=== PATIENT | female | born 1955 | race African-American/Black ===

== ENCOUNTER 2016-12-29 00:23 | Inpatient (IN) | payer OTHER ==
[2016-12-29] VITALS (7 sets, daily range): BP systolic 96–156; BP diastolic 63–97
[~2016-12-29] VITALS: Ht 160 cm; Wt 59.0 kg
[~2016-12-29 00:23] MED LIST: ATEN25 PO; FAMO20 PO; HYDR25TA PO; IBUP-2070 PO; MULT-1039 PO; NYST5L PO; OXYB5 PO; QUET200T PO; RIVA10 PO; SIMV-260 PO
[2016-12-29] MEDS ORDERED: TRAZ-144 PO (00:31)
[2016-12-29] MEDS ORDERED: D-ME118S13 PO (00:31)
[2016-12-29] MEDS ORDERED: NALOXONE HCL 1 MG/ML 2 ML SYG ONE (00:39)
[2016-12-29] MEDS ORDERED: NALOXONE HCL 1 MG/ML 2 ML SYG IVP ONE (00:45)
[2016-12-29] MEDS ORDERED: FLUMAZENIL 0.1 MG/ML 5 ML VIAL IVP ONE (01:00)
[2016-12-29 01:09] LABS: BASOPHILS # (AUTO) 0.02 K/uL (0.00-0.20); BASOPHILS % (AUTO) 0.4 % (0.0-2.0); EOSINOPHILS # (AUTO) 0.11 K/uL (0.00-0.70); EOSINOPHILS % (AUTO) 1.59 % (1.0-6.0); HEMATOCRIT 35.5 % (36-46); HEMOGLOBIN 11.6 g/dL (12.0-16.0); LYMPHOCYTES # (AUTO) 2.9 K/uL (1.0-4.8); LYMPHOCYTES % (AUTO) 43.5 % (22.0-44.0); MEAN CORPUSCULAR HEMOGLOBIN 28.2 pg (26.0-34.0); MEAN CORPUSCULAR HGB CONC 32.7 G/dL (31.0-37.0); MEAN CORPUSCULAR VOLUME 86 fL (80-100); MONOCYTES # (AUTO) 0.4 K/uL (0.1-1.0); NEUTROPHILS # (AUTO) 3.3 K/uL (1.8-7.7); NEUTROPHILS % (AUTO) 48.6 % (40.0-70.0); PLATELET COUNT (AUTO) 222 K/uL (150-450); PROTHROMBIN TIME 10.2 SEC (9.4-11.6); RED BLOOD CELL COUNT(AUTO) 4.12 MIL/uL (4.00-5.20); RED CELL DISTRIBUTION WIDTH 15.5 % (11.5-14.5); WHITE BLOOD COUNT (AUTO) 6.7 K/uL (4.5-11.0)
[2016-12-29] MEDS ORDERED: DIPH25 PO (01:13)
[2016-12-29] MEDS ORDERED: GABA-529 PO (01:13)
[2016-12-29 01:14] LABS: AMMONIA 21 umol/L (11-32)
[2016-12-29 01:15] LABS: TROPONIN I < 0.02 ng/mL (0.00-0.05)
[2016-12-29 01:16] LABS: APPEARANCE,URINE CLEAR (CLEAR); GLUCOSE, URINE (UA) NEGATIVE (NEGATIVE); KETONES,URINE NEGATIVE (NEGATIVE); LEUKOCYTE ESTERASE ,URINE NEGATIVE (NEGATIVE); OCCULT BLOOD,URINE NEGATIVE (NEGATIVE); PH,URINE 6.5 (5.0-8.0); PROTEIN,URINE NEGATIVE (NEGATIVE)
[2016-12-29 01:28] LABS: SALICYLATE < 2.8 mg/dL (2.8-20.0)
[2016-12-29 01:38] LABS: B-TYPE NATRIURETIC PEPTIDE 14 pg/mL (0-100)
[2016-12-29 01:45] LABS: ALANINE AMINOTRANSFERASE 31 U/L (12-78); ALBUMIN 2.9 g/dL (3.4-5.0); ANION GAP 11 mmol/L (8-16); ASPARTATE AMINOTRANSFERASE 30 U/L (15-37); BILIRUBIN,TOTAL 0.3 mg/dL (0.1-1.0); CALCIUM, TOTAL 7.8 mg/dL (8.8-10.5); CARBON DIOXIDE 24 mmol/L (22-29); CHLORIDE 106 mmol/L (98-107); CREATINE KINASE MB 2.9 ng/mL (0-5); CREATINE KINASE, TOTAL 304 U/L (26-192); CREATININE 0.76 mg/dL (0.60-1.30); GLOMERULAR FILTR. RATE CALC > 60 mL/min (>60); SODIUM SERUM 141 mmol/L (136-145); TOTAL PROTEIN, SERUM 6.3 g/dL (6.4-8.2); UREA NITROGEN, BLOOD 19 mg/dL (7-18)
[2016-12-29 01:46] LABS: ACETAMINOPHEN < 2 mcg/mL (10-30); POTASSIUM 2.9 mmol/L (3.5-5.1)
[2016-12-29 01:57] LABS: LACTIC ACID 3.1 mmol/L (0.4-2.0)
[2016-12-29] MEDS ORDERED: POTASSIUM CHL 10 MEQ/WATER 50 ML IV ONE ×2 (02:00→04:30)
[2016-12-29 02:13] LABS: RBC,URINE 0-2 /HPF (0-2); WBC,URINE 0-2 /HPF (0-5)
[2016-12-29 02:48] LABS: REFLEX LACTIC ACID? YES YES
[2016-12-29 03:49] LABS: ABG A-A DIFF O2 40.2 mmHg (10-20.0); ABG HCO3 18.8 mmol/L (22.0-26.0); ABG OXYHEMOGLOBIN 91.6 % (94.0-100.0); ABG PCO2 31 mmHg (35-45); TEMPERATURE, FAHRENHEIT, BG 95.7 FAHREN (96.0-98.6)
[2016-12-29 03:50] LABS: ALLEN TEST, BLOOD GAS Positive
[2016-12-29] MEDS ORDERED: ONDANSETRON HCL 4 MG/2 ML VIAL IVP PRN ×2 (04:00→05:15)
[2016-12-29] MEDS ORDERED: 0.9% SODIUM CHLORIDE 10 ML SYRINGE IVP PRN ×2 (04:00→15:45)
[2016-12-29] MEDS ORDERED: POTASSIUM CHL 20 MEQ/D5-0.45NS 1,000 ML IV ONE (04:30)
[2016-12-29] MEDS ORDERED: ACETAMINOPHEN 325 MG TABLET PO PRN (05:15)
[2016-12-29] MEDS ORDERED: BISACODYL 10 MG RECTAL RECTAL SUPPOSITORY PR PRN (05:15)
[2016-12-29] MEDS ORDERED: POTASSIUM CHL 10 MEQ/WATER 50 ML IV PRN (05:15)
[2016-12-29] MEDS ORDERED: MAGNESIUM OXIDE 400 MG TABLET PO PRN (05:15)
[2016-12-29] MEDS ORDERED: MAGNESIUM SULFATE 4 GM/WATER 100 ML IV PRN (05:15)
[2016-12-29] MEDS ORDERED: IPRATROPIUM BROMIDE 0.5 MG/2.5 ML NEB SOLUTION NEB PRN (05:15)
[2016-12-29] MEDS ORDERED: MAGNESIUM HYDROXIDE SUSPENSION 30 ML UDCUP PO PRN (05:15)
[2016-12-29] MEDS ORDERED: HYDROCODONE/ACETAMINOPHEN 5-325 MG TABLET PO PRN (05:15)
[2016-12-29] MEDS ORDERED: ALBUTEROL SULFATE 2.5 MG/0.5 ML NEB SOLUTION NEB PRN (05:15)
[2016-12-29] MEDS ORDERED: POTASSIUM CHLORIDE 20 MEQ ER TABLET PO PRN (05:15)
[2016-12-29] MEDS ORDERED: MAGNESIUM SULFATE 2 GM in DEXTROSE 5%-WATER 50 ML IV PRN (05:15)
[2016-12-29] MEDS: OXYBUTYNIN CHLORIDE 5 MG TABLET PO SCH ×2 (09:00→21:00)
[2016-12-29] MEDS: PANTOPRAZOLE SODIUM 40 MG/VIAL IVP SCH (09:00)
[2016-12-29] MEDS: MULTIVITAMINS WITH MINERALS, THERAPEUTIC TABLET PO SCH (09:00)
[2016-12-29] MEDS: ATENOLOL 25 MG TABLET PO SCH (09:00)
[2016-12-29] MEDS: HYDROCHLOROTHIAZIDE 25 MG TABLET PO SCH (09:00)
[2016-12-29 11:52] LABS: ABG A-A DIFF O2 34.9 mmHg (10-20.0); ABG BASE EXCESS -2.8 mmol/L (-2.0-3.0); ABG HCO3 22.3 mmol/L (22.0-26.0); ABG OXYHEMOGLOBIN 96.7 % (94.0-100.0); ABG PCO2 41 mmHg (35-45); ABG PH 7.357 (7.35-7.450)
[2016-12-29 11:53] LABS: ALLEN TEST, BLOOD GAS Positive
[2016-12-29] MEDS ORDERED: SODIUM CHLORIDE 0.9% 250 ML IV ONE (12:58)
[2016-12-29] MEDS: RIVAROXABAN 10 MG TABLET PO SCH (17:30)
[2016-12-29 17:57] LABS: GLUCOSE,POINT OF CARE 74 MG/DL (70-110)
[2016-12-29] MEDS ORDERED: DEXTROSE 50%-WATER 25 GM/50 ML SYRINGE IVP PRN (18:00)
[2016-12-29] MEDS: SIMVASTATIN 20 MG TABLET PO SCH (21:00)
[2016-12-29] MEDS: DEXTROSE 5%-0.45% SODIUM CHL 1,000 ML IV SCH (21:05)
[2016-12-29] MEDS: VANCOMYCIN HCL 1 GM/D5% WATER 200 ML IV SCH (21:06)
[2016-12-30] VITALS (7 sets, daily range): BP systolic 139–160; BP diastolic 76–88
[2016-12-30 05:12] LABS: BASOPHILS # (AUTO) 0.02 K/uL (0.00-0.20); BASOPHILS % (AUTO) 0.2 % (0.0-2.0); EOSINOPHILS # (AUTO) 0.05 K/uL (0.00-0.70); EOSINOPHILS % (AUTO) 0.43 % (1.0-6.0); HEMATOCRIT 38.6 % (36-46); HEMOGLOBIN 12.5 g/dL (12.0-16.0); LYMPHOCYTES # (AUTO) 2.2 K/uL (1.0-4.8); LYMPHOCYTES % (AUTO) 20.7 % (22.0-44.0); MEAN CORPUSCULAR HEMOGLOBIN 27.7 pg (26.0-34.0); MEAN CORPUSCULAR HGB CONC 32.4 G/dL (31.0-37.0); MEAN CORPUSCULAR VOLUME 86 fL (80-100); MONOCYTES # (AUTO) 0.4 K/uL (0.1-1.0); MONOCYTES % (AUTO) 3.3 % (2.0-9.0); NEUTROPHILS # (AUTO) 8.1 K/uL (1.8-7.7); NEUTROPHILS % (AUTO) 75.3 % (40.0-70.0); PLATELET COUNT (AUTO) 233 K/uL (150-450); RED CELL DISTRIBUTION WIDTH 15.2 % (11.5-14.5); WHITE BLOOD COUNT (AUTO) 10.7 K/uL (4.5-11.0)
[2016-12-30 05:30] LABS: ALANINE AMINOTRANSFERASE 27 U/L (12-78); ALBUMIN 2.9 g/dL (3.4-5.0); ANION GAP 7 mmol/L (8-16); ASPARTATE AMINOTRANSFERASE 19 U/L (15-37); BILIRUBIN,TOTAL 0.4 mg/dL (0.1-1.0); CALCIUM, TOTAL 8.1 mg/dL (8.8-10.5); CARBON DIOXIDE 27 mmol/L (22-29); CHLORIDE 107 mmol/L (98-107); CREATININE 0.81 mg/dL (0.60-1.30); GLOMERULAR FILTR. RATE CALC > 60 mL/min (>60); POTASSIUM 3.6 mmol/L (3.5-5.1); SODIUM SERUM 141 mmol/L (136-145); TOTAL PROTEIN, SERUM 6.6 g/dL (6.4-8.2); UREA NITROGEN, BLOOD 9 mg/dL (7-18)
[2016-12-30 05:34] LABS: LACTIC ACID 1.2 mmol/L (0.4-2.0)
[2016-12-30] MEDS: DEXTROSE 5%-0.45% SODIUM CHL 1,000 ML IV SCH ×2 (06:38→14:32)
[2016-12-30] MEDS: VANCOMYCIN HCL 1 GM/D5% WATER 200 ML IV SCH ×2 (08:22→21:01)
[2016-12-30] MEDS: HYDROCHLOROTHIAZIDE 25 MG TABLET PO SCH (08:22)
[2016-12-30] MEDS: PANTOPRAZOLE SODIUM 40 MG/VIAL IVP SCH (08:22)
[2016-12-30] MEDS: ATENOLOL 25 MG TABLET PO SCH (08:22)
[2016-12-30] MEDS: OXYBUTYNIN CHLORIDE 5 MG TABLET PO SCH ×2 (08:22→21:01)
[2016-12-30] MEDS: MULTIVITAMINS WITH MINERALS, THERAPEUTIC TABLET PO SCH (08:22)
[2016-12-30 09:32] LABS: GLUCOSE,POINT OF CARE 119 MG/DL (70-110)
[2016-12-30 09:32] LABS: GLUCOSE,POINT OF CARE 93 MG/DL (70-110)
[2016-12-30 09:37] LABS: GLUCOSE,POINT OF CARE 107 MG/DL (70-110)
[2016-12-30] MEDS: INSULIN ASPART 100 UNITS/ML SQ PRN ×2 (12:24→21:08)
[2016-12-30 14:13] LABS: GLUCOSE,POINT OF CARE 157 MG/DL (70-110)
[2016-12-30] MEDS: NICOTINE 21 MG/24 HOUR PATCH TD SCH (16:22)
[2016-12-30] MEDS: RIVAROXABAN 10 MG TABLET PO SCH (17:02)
[2016-12-30 20:43] LABS: GLUCOSE,POINT OF CARE 135 MG/DL (70-110)
[2016-12-30] MEDS: SIMVASTATIN 20 MG TABLET PO SCH (21:01)
[2016-12-30] MEDS ORDERED: LORazepam 1 MG TABLET PO PRN (23:15)
[2016-12-30] MEDS ORDERED: ChlorproMAZINE HCL 50 MG TABLET PO PRN (23:15)
[2016-12-31] MEDS: DEXTROSE 5%-0.45% SODIUM CHL 1,000 ML IV SCH ×3 (00:24→20:43)
[2016-12-31 06:00] VITALS: BP 145/78
[2016-12-31 07:15] LABS: ANION GAP 7 mmol/L (8-16); CARBON DIOXIDE 27 mmol/L (22-29); CHLORIDE 103 mmol/L (98-107); CREATININE 0.92 mg/dL (0.60-1.30); GLOMERULAR FILTR. RATE CALC > 60 mL/min (>60); POTASSIUM 3.4 mmol/L (3.5-5.1); SODIUM SERUM 137 mmol/L (136-145); UREA NITROGEN, BLOOD 12 mg/dL (7-18)
[2016-12-31 07:47] VITALS: BP 158/98
[2016-12-31] MEDS: VANCOMYCIN HCL 1 GM/D5% WATER 200 ML IV SCH (08:11)
[2016-12-31] MEDS: NICOTINE 21 MG/24 HOUR PATCH TD SCH (08:12)
[2016-12-31] MEDS: HYDROCHLOROTHIAZIDE 25 MG TABLET PO SCH (08:12)
[2016-12-31] MEDS: OXYBUTYNIN CHLORIDE 5 MG TABLET PO SCH ×2 (08:12→20:44)
[2016-12-31] MEDS: MULTIVITAMINS WITH MINERALS, THERAPEUTIC TABLET PO SCH (08:12)
[2016-12-31] MEDS: ATENOLOL 25 MG TABLET PO SCH (08:12)
[2016-12-31] MEDS: RisperiDONE 0.5 MG TABLET PO SCH ×2 (08:12→20:44)
[2016-12-31] MEDS: POTASSIUM CHLORIDE 20 MEQ ER TABLET PO PRN (08:25)
[2016-12-31] MEDS: PANTOPRAZOLE SODIUM 40 MG/VIAL IVP SCH (08:29)
[2016-12-31 11:36] VITALS: BP 138/63
[2016-12-31] MEDS ORDERED: VANCOMYCIN HCL 750 MG in DEXTROSE 5%-WATER 150 ML IV SCH (14:00)
[2016-12-31 15:34] VITALS: BP 129/81
[2016-12-31] MEDS: RIVAROXABAN 10 MG TABLET PO SCH (17:29)
[2016-12-31 19:38] VITALS: BP 131/77
[2016-12-31 20:22] LABS: GLUCOSE,POINT OF CARE 108 MG/DL (70-110)
[2016-12-31 20:22] LABS: GLUCOSE COMMENT 1 Received Meds; GLUCOSE,POINT OF CARE 144 MG/DL (70-110)
[2016-12-31 20:22] LABS: GLUCOSE,POINT OF CARE 125 MG/DL (70-110)
[2016-12-31] MEDS: SIMVASTATIN 20 MG TABLET PO SCH (20:44)
[2016-12-31] MEDS: TraZODone HCL 50 MG TABLET PO SCH (20:45)
[2016-12-31 20:52] LABS: GLUCOSE,POINT OF CARE 115 MG/DL (70-110)
[2016-12-31 23:55] VITALS: BP 141/73
[2017-01-01 04:48] VITALS: BP 111/74
[2017-01-01 05:12] LABS: GLUCOSE,POINT OF CARE 116 MG/DL (70-110)
[2017-01-01 07:11] LABS: ANION GAP 7 mmol/L (8-16); CALCIUM, TOTAL 9.6 mg/dL (8.8-10.5); CARBON DIOXIDE 28 mmol/L (22-29); CHLORIDE 101 mmol/L (98-107); CREATININE 0.88 mg/dL (0.60-1.30); GLOMERULAR FILTR. RATE CALC > 60 mL/min (>60); POTASSIUM 3.8 mmol/L (3.5-5.1); SODIUM SERUM 136 mmol/L (136-145); UREA NITROGEN, BLOOD 18 mg/dL (7-18)
[2017-01-01 07:50] VITALS: BP 132/89
[2017-01-01] MEDS: DEXTROSE 5%-0.45% SODIUM CHL 1,000 ML IV SCH ×2 (09:01→15:35)
[2017-01-01] MEDS: PANTOPRAZOLE SODIUM 40 MG/VIAL IVP SCH (09:05)
[2017-01-01] MEDS: ATENOLOL 25 MG TABLET PO SCH (09:06)
[2017-01-01] MEDS: HYDROCHLOROTHIAZIDE 25 MG TABLET PO SCH (09:06)
[2017-01-01] MEDS: NICOTINE 21 MG/24 HOUR PATCH TD SCH (09:07)
[2017-01-01] MEDS: RisperiDONE 0.5 MG TABLET PO SCH ×2 (09:07→20:59)
[2017-01-01] MEDS: OXYBUTYNIN CHLORIDE 5 MG TABLET PO SCH ×2 (09:07→20:59)
[2017-01-01 11:25] VITALS: BP 122/78
[2017-01-01 12:27] LABS: GLUCOSE,POINT OF CARE 121 MG/DL (70-110)
[2017-01-01] MEDS: MULTIVITAMINS WITH MINERALS, THERAPEUTIC TABLET PO SCH (15:34)
[2017-01-01 15:44] VITALS: BP 132/75
[2017-01-01] MEDS: RIVAROXABAN 10 MG TABLET PO SCH (17:35)
[2017-01-01 19:26] VITALS: BP 144/84
[2017-01-01] MEDS: TraZODone HCL 50 MG TABLET PO SCH (20:59)
[2017-01-01] MEDS: SIMVASTATIN 20 MG TABLET PO SCH (20:59)
[2017-01-01 21:42] LABS: GLUCOSE COMMENT 1 Juice/Food/D50 Given; GLUCOSE,POINT OF CARE 87 MG/DL (70-110)
[2017-01-01 23:12] VITALS: BP 142/91
[2017-01-02] VITALS (7 sets, daily range): BP systolic 97–152; BP diastolic 53–92
[2017-01-02 06:41] LABS: ANION GAP 6 mmol/L (8-16); CALCIUM, TOTAL 9.4 mg/dL (8.8-10.5); CARBON DIOXIDE 29 mmol/L (22-29); CHLORIDE 100 mmol/L (98-107); CREATININE 0.78 mg/dL (0.60-1.30); GLOMERULAR FILTR. RATE CALC > 60 mL/min (>60); POTASSIUM 3.6 mmol/L (3.5-5.1); SODIUM SERUM 135 mmol/L (136-145); UREA NITROGEN, BLOOD 18 mg/dL (7-18)
[2017-01-02 06:41] LABS: GLUCOSE,POINT OF CARE 103 MG/DL (70-110)
[2017-01-02] MEDS: PANTOPRAZOLE SODIUM 40 MG/VIAL IVP SCH (09:07)
[2017-01-02] MEDS: ATENOLOL 25 MG TABLET PO SCH (09:08)
[2017-01-02] MEDS: MULTIVITAMINS WITH MINERALS, THERAPEUTIC TABLET PO SCH (09:09)
[2017-01-02] MEDS: HYDROCHLOROTHIAZIDE 25 MG TABLET PO SCH (09:09)
[2017-01-02] MEDS: OXYBUTYNIN CHLORIDE 5 MG TABLET PO SCH ×2 (09:09→19:49)
[2017-01-02] MEDS: NICOTINE 21 MG/24 HOUR PATCH TD SCH (09:10)
[2017-01-02] MEDS: RisperiDONE 0.5 MG TABLET PO SCH ×2 (09:10→19:49)
[2017-01-02 18:07] LABS: GLUCOSE,POINT OF CARE 103 MG/DL (70-110)
[2017-01-02] MEDS: TraZODone HCL 50 MG TABLET PO SCH (19:49)
[2017-01-02] MEDS: SIMVASTATIN 20 MG TABLET PO SCH (19:49)
[2017-01-02 20:21] LABS: GLUCOSE,POINT OF CARE 102 MG/DL (70-110)
[2017-01-02] MEDS: RIVAROXABAN 10 MG TABLET PO SCH (20:23)
[2017-01-02 22:47] LABS: GLUCOSE,POINT OF CARE 116 MG/DL (70-110)
[2017-01-03 04:48] VITALS: BP 119/53
[2017-01-03 06:36] LABS: BASOPHILS % (AUTO) 0.4 % (0.0-2.0); EOSINOPHILS % (AUTO) 3.6 % (1.0-6.0); HEMATOCRIT 42.5 % (36-46); HEMOGLOBIN 13.4 g/dL (12.0-16.0); LYMPHOCYTES # (AUTO) 2.8 K/uL (1.0-4.8); LYMPHOCYTES % (AUTO) 36.5 % (22.0-44.0); MEAN CORPUSCULAR HGB CONC 31.4 G/dL (31.0-37.0); MEAN CORPUSCULAR VOLUME 86 fL (80-100); MONOCYTES # (AUTO) 0.7 K/uL (0.1-1.0); MONOCYTES % (AUTO) 9.6 % (2.0-9.0); NEUTROPHILS # (AUTO) 3.9 K/uL (1.8-7.7); NEUTROPHILS % (AUTO) 49.9 % (40.0-70.0); PLATELET COUNT (AUTO) 285 K/uL (150-450); RED BLOOD CELL COUNT(AUTO) 4.95 MIL/uL (4.00-5.20); RED CELL DISTRIBUTION WIDTH 14.8 % (11.5-14.5); WHITE BLOOD COUNT (AUTO) 7.8 K/uL (4.5-11.0)
[2017-01-03 06:37] LABS: GLUCOSE,POINT OF CARE 110 MG/DL (70-110)
[2017-01-03 06:52] LABS: GLUCOSE,POINT OF CARE 121 MG/DL (70-110)
[2017-01-03 07:14] LABS: ANION GAP 8 mmol/L (8-16); CARBON DIOXIDE 29 mmol/L (22-29); CHLORIDE 98 mmol/L (98-107); POTASSIUM 3.6 mmol/L (3.5-5.1); SODIUM SERUM 135 mmol/L (136-145)
[2017-01-03 07:15] LABS: CALCIUM, TOTAL 9.4 mg/dL (8.8-10.5); CREATININE 0.94 mg/dL (0.60-1.30); GLOMERULAR FILTR. RATE CALC > 60 mL/min (>60); UREA NITROGEN, BLOOD 20 mg/dL (7-18)
[2017-01-03 07:28] VITALS: BP 111/75
[2017-01-03] MEDS: PANTOPRAZOLE SODIUM 40 MG/VIAL IVP SCH ×2 (08:42→09:00)
[2017-01-03] MEDS: OXYBUTYNIN CHLORIDE 5 MG TABLET PO SCH ×2 (08:42→20:41)
[2017-01-03] MEDS: HYDROCHLOROTHIAZIDE 25 MG TABLET PO SCH (08:43)
[2017-01-03] MEDS: ATENOLOL 25 MG TABLET PO SCH ×2 (08:43→11:22)
[2017-01-03] MEDS: RisperiDONE 0.5 MG TABLET PO SCH ×2 (08:43→20:41)
[2017-01-03] MEDS: MULTIVITAMINS WITH MINERALS, THERAPEUTIC TABLET PO SCH (08:43)
[2017-01-03] MEDS: NICOTINE 21 MG/24 HOUR PATCH TD SCH (08:44)
[2017-01-03 11:16] VITALS: BP 150/77
[2017-01-03 12:02] LABS: GLUCOSE,POINT OF CARE 117 MG/DL (70-110)
[2017-01-03 15:20] VITALS: BP 107/59
[2017-01-03 17:33] LABS: GLUCOSE,POINT OF CARE 94 MG/DL (70-110)
[2017-01-03 17:37] LABS: GLUCOSE,POINT OF CARE 93 MG/DL (70-110)
[2017-01-03] MEDS: RIVAROXABAN 10 MG TABLET PO SCH (18:07)
[2017-01-03 20:00] VITALS: BP 116/64
[2017-01-03] MEDS: TraZODone HCL 50 MG TABLET PO SCH (20:41)
[2017-01-03] MEDS: SIMVASTATIN 20 MG TABLET PO SCH (20:41)
[2017-01-03 23:35] VITALS: BP 120/77
[2017-01-04 04:27] VITALS: BP 101/76
[2017-01-04 06:30] LABS: BASOPHILS % (AUTO) 0.4 % (0.0-2.0); EOSINOPHILS % (AUTO) 2.6 % (1.0-6.0); HEMATOCRIT 43.2 % (36-46); HEMOGLOBIN 13.4 g/dL (12.0-16.0); LYMPHOCYTES # (AUTO) 2.5 K/uL (1.0-4.8); LYMPHOCYTES % (AUTO) 33.9 % (22.0-44.0); MEAN CORPUSCULAR HEMOGLOBIN 26.8 pg (26.0-34.0); MEAN CORPUSCULAR VOLUME 86 fL (80-100); MONOCYTES # (AUTO) 0.8 K/uL (0.1-1.0); MONOCYTES % (AUTO) 11.2 % (2.0-9.0); NEUTROPHILS # (AUTO) 3.8 K/uL (1.8-7.7); NEUTROPHILS % (AUTO) 51.9 % (40.0-70.0); PLATELET COUNT (AUTO) 300 K/uL (150-450); RED CELL DISTRIBUTION WIDTH 14.9 % (11.5-14.5); WHITE BLOOD COUNT (AUTO) 7.4 K/uL (4.5-11.0)
[2017-01-04 06:36] LABS: GLUCOSE,POINT OF CARE 120 MG/DL (70-110)
[2017-01-04 06:43] LABS: ANION GAP 8 mmol/L (8-16); CALCIUM, TOTAL 9.4 mg/dL (8.8-10.5); CARBON DIOXIDE 29 mmol/L (22-29); CHLORIDE 100 mmol/L (98-107); CREATININE 0.88 mg/dL (0.60-1.30); GLOMERULAR FILTR. RATE CALC > 60 mL/min (>60); POTASSIUM 3.4 mmol/L (3.5-5.1); SODIUM SERUM 137 mmol/L (136-145); UREA NITROGEN, BLOOD 24 mg/dL (7-18)
[2017-01-04 06:48] LABS: GLUCOSE,POINT OF CARE 113 MG/DL (70-110)
[2017-01-04] MEDS: POTASSIUM CHLORIDE 20 MEQ ER TABLET PO PRN (07:44)
[2017-01-04] MEDS: NICOTINE 21 MG/24 HOUR PATCH TD SCH (08:01)
[2017-01-04] MEDS: OXYBUTYNIN CHLORIDE 5 MG TABLET PO SCH (08:01)
[2017-01-04] MEDS: RisperiDONE 0.5 MG TABLET PO SCH (08:01)
[2017-01-04] MEDS: ATENOLOL 25 MG TABLET PO SCH (08:01)
[2017-01-04] MEDS: MULTIVITAMINS WITH MINERALS, THERAPEUTIC TABLET PO SCH (08:01)
[2017-01-04] MEDS: HYDROCHLOROTHIAZIDE 25 MG TABLET PO SCH (08:01)
[2017-01-04] MEDS: PANTOPRAZOLE SODIUM 40 MG/VIAL IVP SCH (08:02)
[2017-01-04 08:40] VITALS: BP 122/56
[2017-01-04 11:30] VITALS: BP 114/67
[2017-01-04 12:07] LABS: GLUCOSE,POINT OF CARE 98 MG/DL (70-110)
== END 2017-01-04 14:57 | disposition home or self-care (01) | DRG 812 ==
LOC: EMS 00:24 → ICU 05:29 → 5N 12-30 07:25 → 5S 01-01 05:40 → 6N 01-02 14:23
PROVIDERS: ADMIT Internal Medicine; ATTEND Internal Medicine
DX: T43.592A Poisoning by other antipsychotics and neuroleptics, intentional self-harm, initial encounter (principal); G92 Toxic encephalopathy; E44.0 Moderate protein-calorie malnutrition; I48.0 Paroxysmal atrial fibrillation; E83.51 Hypocalcemia; I10 Essential (primary) hypertension; J44.9 Chronic obstructive pulmonary disease, unspecified; E87.6 Hypokalemia; F41.8 Other specified anxiety disorders; F10.229 Alcohol dependence with intoxication, unspecified; Z86.73 Personal history of transient ischemic attack (TIA), and cerebral infarction without residual deficits; R32 Unspecified urinary incontinence; T42.6X2A Poisoning by other antiepileptic and sedative-hypnotic drugs, intentional self-harm, initial encounter; T43.212A Poisoning by selective serotonin and norepinephrine reuptake inhibitors, intentional self-harm, initial encounter; E11.9 Type 2 diabetes mellitus without complications; E78.5 Hyperlipidemia, unspecified; E78.00 Pure hypercholesterolemia, unspecified; F17.210 Nicotine dependence, cigarettes, uncomplicated; G47.00 Insomnia, unspecified; F25.0 Schizoaffective disorder, bipolar type; Z79.51 Long term (current) use of inhaled steroids; Z79.01 Long term (current) use of anticoagulants; Z91.14 Patient's other noncompliance with medication regimen; Z91.5 Personal history of self-harm; Z79.899 Other long term (current) drug therapy; Y92.89 Other specified places as the place of occurrence of the external cause; Y93.89 Activity, other specified; Y99.8 Other external cause status
CPT/HCPCS: 51702; 70450; 82805; 82962; 83605; 83735; 84132; 87040; 87081; 93005; 96361; 96365; 96366; 96374; 96375; 99291; C9113; G0480; G0481; J2310; J3370; J3480; J3490; J7050; J7060

== ENCOUNTER 2017-07-25 00:23 | Emergency (ER) | payer OTHER ==
[~2017-07-25] VITALS: Ht 160 cm; Wt 54.5 kg
[~2017-07-25 00:23] MED LIST changes: -ATEN25 PO; +ATEN25TA PO; -IBUP-2070 PO; -NYST5L PO; -OXYB5 PO; +TRAZ-144 PO
[2017-07-25] MEDS ORDERED: GUAIF600 PO (00:46)
[2017-07-25] MEDS ORDERED: NIAC500T7 PO (00:46)
[2017-07-25] MEDS ORDERED: THIA100 PO (00:46)
[2017-07-25] MEDS ORDERED: OMEP20 PO (00:46)
[2017-07-25] MEDS ORDERED: RANI150T7 PO (00:46)
[2017-07-25] MEDS ORDERED: DICL75TA5 PO (00:46)
[2017-07-25] MEDS ORDERED: VITAD50000 PO (00:46)
[2017-07-25] MEDS ORDERED: TRAZ-144 PO (00:46)
[2017-07-25] MEDS ORDERED: OXYB5XL PO (00:46)
[2017-07-25] MEDS ORDERED: FAMO20 PO (00:46)
[2017-07-25] MEDS ORDERED: GABA-318 PO (00:46)
[2017-07-25] MEDS ORDERED: SODIUM CHLORIDE 0.9% 1,000 ML IV ONE (01:45)
[2017-07-25 01:59] LABS: INFLUENZA TYPE B NEGATIVE FOR TYPE B (NEGATIVE)
[2017-07-25 02:07] LABS: BASOPHILS # (AUTO) 0.02 K/uL (0.00-0.20); BASOPHILS % (AUTO) 0.2 % (0.0-2.0); EOSINOPHILS # (AUTO) 0.01 K/uL (0.00-0.70); EOSINOPHILS % (AUTO) 0.05 % (1.0-6.0); HEMATOCRIT 38.8 % (36-46); HEMOGLOBIN 12.4 g/dL (12.0-16.0); LYMPHOCYTES % (AUTO) 7.5 % (22.0-44.0); MEAN CORPUSCULAR HEMOGLOBIN 28.2 pg (26.0-34.0); MEAN CORPUSCULAR HGB CONC 31.9 G/dL (31.0-37.0); MEAN CORPUSCULAR VOLUME 88 fL (80-100); MONOCYTES # (AUTO) 0.3 K/uL (0.1-1.0); NEUTROPHILS # (AUTO) 11.6 K/uL (1.8-7.7); PLATELET COUNT (AUTO) 190 K/uL (150-450); RED BLOOD CELL COUNT(AUTO) 4.39 MIL/uL (4.00-5.20); RED CELL DISTRIBUTION WIDTH 14.4 % (11.5-14.5); WHITE BLOOD COUNT (AUTO) 12.9 K/uL (4.5-11.0)
[2017-07-25 02:08] LABS: NEUTROPHILS % (AUTO) 90.3 % (40.0-70.0)
[2017-07-25 02:23] LABS: RBC MORPHOLOGY COMMENT NORMAL RBC MORPH
[2017-07-25 02:24] LABS: ALANINE AMINOTRANSFERASE 20 U/L (12-78); ALBUMIN 3.3 g/dL (3.4-5.0); ANION GAP 8 mmol/L (8-16); ASPARTATE AMINOTRANSFERASE 13 U/L (15-37); BILIRUBIN,TOTAL 0.7 mg/dL (0.1-1.0); CALCIUM, TOTAL 8.7 mg/dL (8.8-10.5); CARBON DIOXIDE 25 mmol/L (22-29); CHLORIDE 105 mmol/L (98-107); CREATININE 1.04 mg/dL (0.60-1.30); GLOMERULAR FILTR. RATE CALC > 60 mL/min (>60); SODIUM SERUM 138 mmol/L (136-145); UREA NITROGEN, BLOOD 20 mg/dL (7-18)
[2017-07-25 02:26] LABS: LACTIC ACID 1.7 mmol/L (0.4-2.0)
[2017-07-25] MEDS ORDERED: POTASSIUM CHLORIDE 20 MEQ ER TABLET PO ONE (03:00)
[2017-07-25] MEDS ORDERED: AZITHROMYCIN 250 MG TABLET PO ONE (03:15)
[2017-07-25] MEDS ORDERED: OSELTAMIVIR PHOSPHATE 75 MG CAPSULE PO ONE (03:15)
[2017-07-25 04:33] LABS: GLUCOSE, URINE (UA) NEGATIVE (NEGATIVE); KETONES,URINE TRACE mg/dL (NEGATIVE); LEUKOCYTE ESTERASE ,URINE MODERATE (NEGATIVE); OCCULT BLOOD,URINE NEGATIVE (NEGATIVE); PROTEIN,URINE NEGATIVE (NEGATIVE)
[2017-07-25 04:46] LABS: ADD UA MICROSCOPIC YES; APPEARANCE,URINE SLIGHTLY CLOUDY (CLEAR); RBC,URINE 0-2 /HPF (0-2); SQUAMOUS EPITHELIAL CELL,UR Many /LPF (None Seen)
[2017-07-25 05:35] VITALS: BP 104/71
== END 2017-07-25 05:58 | disposition home or self-care (01) ==
LOC: EMS 00:24
DX: J18.0 Bronchopneumonia, unspecified organism (principal); J44.9 Chronic obstructive pulmonary disease, unspecified; E78.00 Pure hypercholesterolemia, unspecified; I10 Essential (primary) hypertension; F17.210 Nicotine dependence, cigarettes, uncomplicated; Z86.73 Personal history of transient ischemic attack (TIA), and cerebral infarction without residual deficits; Z79.899 Other long term (current) drug therapy
CPT/HCPCS: 36415; 71010; 80053; 81001; 83605; 84484; 85025; 87040; 87086; 87804; 93005; 96360; 99285; J7030

== ENCOUNTER 2018-03-30 20:53 | Inpatient (IN) | payer MEDICAID, OTHER ==
[~2018-03-30] VITALS: Ht 160 cm; Wt 43.6 kg
[~2018-03-30 20:53] MED LIST changes: +DICL75TA5 PO; +GABA-318 PO; +GUAIF600 PO; -HYDR25TA PO; -MULT-1039 PO; +NIAC500T7 PO; +OMEP20 PO; +OXYB5XL PO; -QUET200T PO; +RANI150T7 PO; -RIVA10 PO; +THIA100T67 PO; -TRAZ-144 PO; +TRAZ-219 PO; +VITAD50000 PO
[2018-03-30] MEDS ORDERED: HALOPERIDOL 5 MG TABLET PO ONE (23:00)
[2018-03-30 23:15] LABS: BASOPHILS % (AUTO) 0.7 % (0.0-2.0); HEMATOCRIT 41.1 % (36-46); HEMOGLOBIN 13.5 g/dL (12.0-16.0); LYMPHOCYTES # (AUTO) 2.5 K/uL (1.0-4.8); LYMPHOCYTES % (AUTO) 45.6 % (22.0-44.0); MEAN CORPUSCULAR HGB CONC 32.8 G/dL (31.0-37.0); MEAN CORPUSCULAR VOLUME 91 fL (80-100); MONOCYTES # (AUTO) 0.3 K/uL (0.1-1.0); MONOCYTES % (AUTO) 6.2 % (2.0-9.0); NEUTROPHILS # (AUTO) 2.5 K/uL (1.8-7.7); NEUTROPHILS % (AUTO) 45.5 % (40.0-70.0); PLATELET COUNT (AUTO) 230 K/uL (150-450); RED BLOOD CELL COUNT(AUTO) 4.49 MIL/uL (4.00-5.20); RED CELL DISTRIBUTION WIDTH 15.8 % (11.5-14.5)
[2018-03-30 23:29] LABS: ALANINE AMINOTRANSFERASE 28 U/L (12-78); ALBUMIN 3.3 g/dL (3.4-5.0); ALKALINE PHOSPHATASE 57 U/L (46-116); ANION GAP 11 mmol/L (8-16); ASPARTATE AMINOTRANSFERASE 32 U/L (15-37); BILIRUBIN,TOTAL 0.4 mg/dL (0.1-1.0); CALCIUM, TOTAL 8.8 mg/dL (8.8-10.5); CARBON DIOXIDE 28 mmol/L (22-29); CHLORIDE 106 mmol/L (98-107); CREATININE 0.67 mg/dL (0.60-1.30); GLOMERULAR FILTR. RATE CALC > 60 mL/min (>60); GLUCOSE,RANDOM 131 mg/dL (70-110); POTASSIUM 3.1 mmol/L (3.5-5.1); SODIUM SERUM 145 mmol/L (136-145); TOTAL PROTEIN, SERUM 6.6 g/dL (6.4-8.2)
[2018-03-30 23:48] LABS: UREA NITROGEN, BLOOD 25 mg/dL (7-18)
[2018-03-31] VITALS (12 sets, daily range): BP systolic 145–172; BP diastolic 58–104
[2018-03-31] MEDS ORDERED: HALOPERIDOL 5 MG TABLET PO PRN (00:15)
[2018-03-31] MEDS: ZOLPIDEM TARTRATE 10 MG TABLET PO PRN (00:47)
[2018-03-31 00:52] LABS: APPEARANCE,URINE CLEAR (CLEAR); BILIRUBIN,URINE NEGATIVE (NEGATIVE); GLUCOSE, URINE (UA) NEGATIVE (NEGATIVE); KETONES,URINE NEGATIVE (NEGATIVE); LEUKOCYTE ESTERASE ,URINE NEGATIVE (NEGATIVE); NITRATE,URINE NEGATIVE (NEGATIVE); OCCULT BLOOD,URINE NEGATIVE (NEGATIVE); PROTEIN,URINE NEGATIVE (NEGATIVE)
[2018-03-31 00:58] LABS: AMPHET/METH SCREEN,URINE NEGATIVE (NEGATIVE); BARBITURATE SCREEN, URINE NEGATIVE (NEGATIVE); BENZODIAZEPINES SCREEN,URINE NEGATIVE (NEGATIVE); CANNABINOID SCREEN,URINE NEGATIVE (NEGATIVE); COCAINE SCREEN,URINE NEGATIVE (NEGATIVE); METHADONE SCREEN, URINE NEGATIVE (NEGATIVE); OPIATE SCREEN,URINE NEGATIVE (NEGATIVE); PHENCYCLIDINE SCREEN,URINE NEGATIVE (NEGATIVE)
[2018-03-31 01:10] LABS: BACTERIA,URINE None Seen /HPF (None Seen); RBC,URINE None Seen /HPF (0-2); WBC,URINE None Seen /HPF (0-5)
[2018-03-31] MEDS ORDERED: PNEUMOCOCCAL VACCINE POLYVALENT 0.5 ML VIAL [PPSV23] IM ONE (05:45)
[2018-03-31] MEDS ORDERED: NICOTINE 14 MG/24 HOUR PATCH TD PRN (06:45)
[2018-03-31] MEDS ORDERED: GuaiFENesin/D-METHORPHAN [SUGAR-FREE] 200-20MG/10 ML SYRUP UDCUP PO PRN (06:45)
[2018-03-31] MEDS ORDERED: CloNIDine HCL 0.1 MG TABLET PO PRN (06:45)
[2018-03-31] MEDS ORDERED: ONDANSETRON HCL 4 MG TABLET PO PRN (06:45)
[2018-03-31] MEDS ORDERED: ALBUTEROL SULFATE HFA 90 MCG/PUFF 8 GM INHALER IH PRN (06:45)
[2018-03-31] MEDS ORDERED: MAG HYDROX/AL HYDROX/SIMETH ES 30 ML SUSPENSION UDCUP PO PRN (06:45)
[2018-03-31] MEDS ORDERED: MAGNESIUM HYDROXIDE SUSPENSION 30 ML UDCUP PO PRN (06:45)
[2018-03-31] MEDS ORDERED: LOPERAMIDE HCL 2 MG CAPSULE PO PRN (06:45)
[2018-03-31] MEDS ORDERED: PETROLATUM,WHITE 71 GM JELLY TP PRN (06:45)
[2018-03-31] MEDS ORDERED: POTASSIUM CHLORIDE 20 MEQ ER TABLET PO ONE (06:45)
[2018-03-31] MEDS ORDERED: DOCUSATE SODIUM 100 MG CAPSULE PO PRN (06:45)
[2018-03-31] MEDS: ATENOLOL 25 MG TABLET PO SCH (08:22)
[2018-03-31] MEDS: LORazepam 2 MG TABLET PO PRN (08:40)
[2018-03-31] MEDS: IBUPROFEN 400 MG TABLET PO PRN ×2 (09:49→20:42)
[2018-03-31] MEDS ORDERED: PROMETHAZINE HCL 25 MG TABLET PO PRN (11:45)
[2018-03-31] MEDS ORDERED: HydrOXYzine PAMOATE 50 MG CAPSULE PO PRN (11:45)
[2018-03-31] MEDS ORDERED: ChlordiazePOXIDE HCL 25 MG CAPSULE PO PRN (11:45)
[2018-03-31] MEDS ORDERED: CYANOCOBALAMIN 1,000 MCG/ML VIAL IM ONE (11:45)
[2018-03-31] MEDS: MULTIVITAMINS WITH MINERALS, THERAPEUTIC TABLET PO SCH (13:29)
[2018-03-31] MEDS: FOLIC ACID 1 MG TABLET PO SCH (13:29)
[2018-03-31] MEDS: THIAMINE HCL 100 MG TABLET PO SCH (16:39)
[2018-03-31] MEDS: HydrALAZINE HCL 10 MG TABLET PO SCH (20:41)
[2018-04-01] VITALS (7 sets, daily range): BP systolic 145–154; BP diastolic 69–84
[2018-04-01] MEDS: LORazepam 2 MG TABLET PO PRN (03:40)
[2018-04-01] MEDS: IBUPROFEN 400 MG TABLET PO PRN (03:40)
[2018-04-01] MEDS ORDERED: ChlordiazePOXIDE HCL 25 MG CAPSULE PO PRN (07:00)
[2018-04-01 07:23] LABS: BASOPHILS % (AUTO) 0.5 % (0.0-2.0); EOSINOPHILS % (AUTO) 0.6 % (1.0-6.0); HEMATOCRIT 47.3 % (36-46); HEMOGLOBIN 15.7 g/dL (12.0-16.0); LYMPHOCYTES % (AUTO) 32.3 % (22.0-44.0); MEAN CORPUSCULAR HEMOGLOBIN 30.1 pg (26.0-34.0); MEAN CORPUSCULAR HGB CONC 33.1 G/dL (31.0-37.0); MEAN CORPUSCULAR VOLUME 91 fL (80-100); MONOCYTES # (AUTO) 0.5 K/uL (0.1-1.0); MONOCYTES % (AUTO) 7.7 % (2.0-9.0); NEUTROPHILS # (AUTO) 3.6 K/uL (1.8-7.7); NEUTROPHILS % (AUTO) 58.9 % (40.0-70.0); PLATELET COUNT (AUTO) 246 K/uL (150-450); RED CELL DISTRIBUTION WIDTH 15.6 % (11.5-14.5)
[2018-04-01 07:54] LABS: ALANINE AMINOTRANSFERASE 31 U/L (12-78); ALBUMIN 3.8 g/dL (3.4-5.0); ALKALINE PHOSPHATASE 54 U/L (46-116); ANION GAP 10 mmol/L (8-16); ASPARTATE AMINOTRANSFERASE 35 U/L (15-37); BILIRUBIN,TOTAL 1.1 mg/dL (0.1-1.0); CALCIUM, TOTAL 9.4 mg/dL (8.8-10.5); CARBON DIOXIDE 26 mmol/L (22-29); CHLORIDE 100 mmol/L (98-107); CHOLESTEROL 234 mg/dL (131-200); CREATININE 0.57 mg/dL (0.60-1.30); FREE T4 (FREE THYROXINE) 1.13 ng/dL (0.76-1.46); GLOMERULAR FILTR. RATE CALC > 60 mL/min (>60); GLUCOSE,RANDOM 109 mg/dL (70-110); HDL CHOLESTEROL 118 mg/dL (40-60); LDL CHOL (CALC.) 94 mg/dL (0-130); POTASSIUM 3.8 mmol/L (3.5-5.1); SODIUM SERUM 136 mmol/L (136-145); THYROID STIMULATING HORMONE 1.51 uIU/mL (0.36-3.74); TOTAL PROTEIN, SERUM 7.6 g/dL (6.4-8.2); TRIGLYCERIDES 112 mg/dL (15-150); UREA NITROGEN, BLOOD 14 mg/dL (7-18)
[2018-04-01 08:03] LABS: HEMOGLOBIN A1C 4.9 % (4.5-6.2)
[2018-04-01] MEDS: GABAPENTIN 100 MG CAPSULE PO SCH ×3 (08:29→17:30)
[2018-04-01] MEDS: FOLIC ACID 1 MG TABLET PO SCH (08:29)
[2018-04-01] MEDS: ChlordiazePOXIDE HCL 25 MG CAPSULE PO SCH ×4 (08:29→21:13)
[2018-04-01] MEDS: MULTIVITAMINS WITH MINERALS, THERAPEUTIC TABLET PO SCH (08:29)
[2018-04-01] MEDS: BuPROPion HCL XL 150 MG ER TABLET PO SCH (08:30)
[2018-04-01] MEDS: THIAMINE HCL 100 MG TABLET PO SCH ×2 (08:30→17:30)
[2018-04-01] MEDS: HydrALAZINE HCL 10 MG TABLET PO SCH ×2 (08:30→21:13)
[2018-04-01] MEDS: ATENOLOL 25 MG TABLET PO SCH (08:30)
[2018-04-01] MEDS: ACETAMINOPHEN 325 MG TABLET PO PRN (08:46)
[2018-04-02] MEDS: ZOLPIDEM TARTRATE 10 MG TABLET PO PRN (02:12)
[2018-04-02] MEDS: ChlordiazePOXIDE HCL 25 MG CAPSULE PO SCH ×4 (08:57→20:05)
[2018-04-02] MEDS: THIAMINE HCL 100 MG TABLET PO SCH ×2 (08:57→17:14)
[2018-04-02] MEDS: GABAPENTIN 100 MG CAPSULE PO SCH ×3 (08:57→17:14)
[2018-04-02] MEDS: FOLIC ACID 1 MG TABLET PO SCH (08:57)
[2018-04-02] MEDS: MULTIVITAMINS WITH MINERALS, THERAPEUTIC TABLET PO SCH (08:57)
[2018-04-02] MEDS: BuPROPion HCL XL 150 MG ER TABLET PO SCH (08:57)
[2018-04-02] MEDS: HydrALAZINE HCL 10 MG TABLET PO SCH ×2 (08:58→20:04)
[2018-04-02] MEDS: ATENOLOL 25 MG TABLET PO SCH (08:58)
[2018-04-02 09:00] VITALS: BP 107/75
[2018-04-02] MEDS: IBUPROFEN 400 MG TABLET PO PRN (09:00)
[2018-04-02 18:00] VITALS: BP 139/75
[2018-04-02 18:07] VITALS: BP 139/75
[2018-04-03 00:14] VITALS: BP 95/68
[2018-04-03] MEDS: ZOLPIDEM TARTRATE 10 MG TABLET PO PRN ×2 (00:16→22:57)
[2018-04-03] MEDS: IBUPROFEN 400 MG TABLET PO PRN (00:16)
[2018-04-03] MEDS ORDERED: ChlordiazePOXIDE HCL 10 MG CAPSULE PO PRN (07:00)
[2018-04-03 07:10] VITALS: BP 141/81
[2018-04-03] MEDS: FOLIC ACID 1 MG TABLET PO SCH (08:10)
[2018-04-03] MEDS: ChlordiazePOXIDE HCL 10 MG CAPSULE PO SCH ×4 (08:13→20:11)
[2018-04-03] MEDS: BuPROPion HCL XL 150 MG ER TABLET PO SCH (08:14)
[2018-04-03] MEDS: MULTIVITAMINS WITH MINERALS, THERAPEUTIC TABLET PO SCH (08:14)
[2018-04-03] MEDS: GABAPENTIN 100 MG CAPSULE PO SCH ×3 (08:14→16:14)
[2018-04-03] MEDS: THIAMINE HCL 100 MG TABLET PO SCH ×2 (08:14→16:14)
[2018-04-03] MEDS: ATENOLOL 25 MG TABLET PO SCH (08:14)
[2018-04-03] MEDS: HydrALAZINE HCL 10 MG TABLET PO SCH ×2 (08:14→20:10)
[2018-04-03 11:02] VITALS: BP 133/82
[2018-04-03 17:14] VITALS: BP 124/90
[2018-04-03 17:15] VITALS: BP 124/90
[2018-04-04] MEDS: LORazepam 2 MG TABLET PO PRN ×2 (01:51→22:29)
[2018-04-04] MEDS: IBUPROFEN 400 MG TABLET PO PRN ×2 (01:51→20:39)
[2018-04-04 01:55] VITALS: BP 90/65
[2018-04-04 06:55] VITALS: BP 90/65
[2018-04-04] MEDS ORDERED: ChlordiazePOXIDE HCL 10 MG CAPSULE PO PRN (07:00)
[2018-04-04 08:00] VITALS: BP 122/62
[2018-04-04] MEDS: HydrALAZINE HCL 10 MG TABLET PO SCH ×2 (08:31→20:03)
[2018-04-04] MEDS: GABAPENTIN 100 MG CAPSULE PO SCH ×3 (08:32→16:38)
[2018-04-04] MEDS: THIAMINE HCL 100 MG TABLET PO SCH ×2 (08:32→16:38)
[2018-04-04] MEDS: MULTIVITAMINS WITH MINERALS, THERAPEUTIC TABLET PO SCH (08:32)
[2018-04-04] MEDS: ATENOLOL 25 MG TABLET PO SCH (08:32)
[2018-04-04] MEDS: FOLIC ACID 1 MG TABLET PO SCH (08:32)
[2018-04-04] MEDS: BuPROPion HCL XL 150 MG ER TABLET PO SCH (08:33)
[2018-04-04] MEDS: NICOTINE 14 MG/24 HOUR PATCH TD SCH (09:00)
[2018-04-04 16:29] VITALS: BP 100/62
[2018-04-04 20:30] VITALS: BP 100/70
[2018-04-04] MEDS: ZOLPIDEM TARTRATE 10 MG TABLET PO PRN (20:54)
[2018-04-04 21:39] VITALS: BP 120/66
[2018-04-05 00:07] VITALS: BP 110/64
[2018-04-05] MEDS: ACETAMINOPHEN 325 MG TABLET PO PRN (00:09)
[2018-04-05 08:00] VITALS: BP 113/61
[2018-04-05 08:30] VITALS: BP 101/58
[2018-04-05] MEDS: HydrALAZINE HCL 10 MG TABLET PO SCH (08:38)
[2018-04-05] MEDS: FOLIC ACID 1 MG TABLET PO SCH (08:39)
[2018-04-05] MEDS: ATENOLOL 25 MG TABLET PO SCH (08:39)
[2018-04-05] MEDS: MULTIVITAMINS WITH MINERALS, THERAPEUTIC TABLET PO SCH (08:39)
[2018-04-05] MEDS: THIAMINE HCL 100 MG TABLET PO SCH (08:39)
[2018-04-05] MEDS: GABAPENTIN 100 MG CAPSULE PO SCH ×2 (08:39→13:35)
[2018-04-05] MEDS: NICOTINE 14 MG/24 HOUR PATCH TD SCH (08:40)
[2018-04-05] MEDS: BuPROPion HCL XL 150 MG ER TABLET PO SCH (08:40)
[2018-04-05] MEDS ORDERED: BUPR-93 PO (13:40)
[2018-04-05] MEDS ORDERED: FOLI1 PO (13:43)
[2018-04-05] MEDS ORDERED: HYDR10TA31 PO (13:45)
[2018-04-05] MEDS ORDERED: MULT-1239 PO (13:50)
== END 2018-04-05 15:33 | disposition home or self-care (01) | DRG 751 ==
LOC: EMS 20:54 → 3EI 03-31 00:48
PROVIDERS: ADMIT Psychiatry & Neurology Psychiatry; ATTEND Psychiatry & Neurology Psychiatry
DX: F33.2 Major depressive disorder, recurrent severe without psychotic features (principal); F14.259 Cocaine dependence with cocaine-induced psychotic disorder, unspecified; B18.2 Chronic viral hepatitis C; E55.9 Vitamin D deficiency, unspecified; E78.00 Pure hypercholesterolemia, unspecified; E78.5 Hyperlipidemia, unspecified; F15.959 Other stimulant use, unspecified with stimulant-induced psychotic disorder, unspecified; F41.9 Anxiety disorder, unspecified; F17.210 Nicotine dependence, cigarettes, uncomplicated; I10 Essential (primary) hypertension; W18.39XA Other fall on same level, initial encounter; J44.9 Chronic obstructive pulmonary disease, unspecified; K21.9 Gastro-esophageal reflux disease without esophagitis; F10.20 Alcohol dependence, uncomplicated; G62.9 Polyneuropathy, unspecified; M25.512 Pain in left shoulder; M19.012 Primary osteoarthritis, left shoulder; R32 Unspecified urinary incontinence; Z86.73 Personal history of transient ischemic attack (TIA), and cerebral infarction without residual deficits; Z91.5 Personal history of self-harm; Y93.89 Activity, other specified; Y92.89 Other specified places as the place of occurrence of the external cause; Y99.8 Other external cause status; Z79.899 Other long term (current) drug therapy; Z71.6 Tobacco abuse counseling; Z71.41 Alcohol abuse counseling and surveillance of alcoholic; Z71.51 Drug abuse counseling and surveillance of drug abuser
CPT/HCPCS: 83036; 84439; 84443; 99285; G0480; J3420

== ENCOUNTER 2018-06-09 14:10 | Inpatient (IN) | payer MEDICAID, OTHER ==
[~2018-06-09] VITALS: Ht 160 cm; Wt 52.7 kg
[~2018-06-09 14:10] MED LIST changes: +BUPR-93 PO; -DICL75TA5 PO; -FAMO20 PO; +FOLI1 PO; -GABA-318 PO; +GABA-529 PO; -GUAIF600 PO; +HYDR10TA31 PO; +MULT-1239 PO; -NIAC500T7 PO; -OMEP20 PO; +OXYB5 PO; -OXYB5XL PO; -RANI150T7 PO; -SIMV-260 PO; -TRAZ-219 PO; -VITAD50000 PO
[2018-06-09 15:58] LABS: BASOPHILS % (AUTO) 0.9 % (0.0-2.0); EOSINOPHILS % (AUTO) 3.9 % (1.0-6.0); HEMATOCRIT 39.3 % (36-46); LYMPHOCYTES # (AUTO) 2.8 K/uL (1.0-4.8); LYMPHOCYTES % (AUTO) 46.6 % (22.0-44.0); MEAN CORPUSCULAR HEMOGLOBIN 29.6 pg (26.0-34.0); MEAN CORPUSCULAR VOLUME 90 fL (80-100); MONOCYTES # (AUTO) 0.4 K/uL (0.1-1.0); MONOCYTES % (AUTO) 6.3 % (2.0-9.0); NEUTROPHILS # (AUTO) 2.5 K/uL (1.8-7.7); NEUTROPHILS % (AUTO) 42.3 % (40.0-70.0); PLATELET COUNT (AUTO) 259 K/uL (150-450); RED BLOOD CELL COUNT(AUTO) 4.38 MIL/uL (4.00-5.20); RED CELL DISTRIBUTION WIDTH 14.1 % (11.5-14.5)
[2018-06-09 16:06] LABS: ANION GAP 5 mmol/L (8-16); CALCIUM, TOTAL 8.5 mg/dL (8.8-10.5); CARBON DIOXIDE 32 mmol/L (22-29); CHLORIDE 107 mmol/L (98-107); CREATININE 0.75 mg/dL (0.60-1.30); GLOMERULAR FILTR. RATE CALC > 60 mL/min (>60); GLUCOSE,RANDOM 117 mg/dL (70-110); POTASSIUM 3.8 mmol/L (3.5-5.1); SODIUM SERUM 144 mmol/L (136-145); UREA NITROGEN, BLOOD 17 mg/dL (7-18)
[2018-06-09 16:21] LABS: ALANINE AMINOTRANSFERASE 33 U/L (12-78); ALBUMIN 3.2 g/dL (3.4-5.0); ALKALINE PHOSPHATASE 53 U/L (46-116); ASPARTATE AMINOTRANSFERASE 24 U/L (15-37); BILIRUBIN,TOTAL 0.2 mg/dL (0.1-1.0); THYROID STIMULATING HORMONE 0.39 uIU/mL (0.36-3.74); TOTAL PROTEIN, SERUM 6.6 g/dL (6.4-8.2)
[2018-06-09 17:30] LABS: APPEARANCE,URINE CLEAR (CLEAR); BILIRUBIN,URINE NEGATIVE (NEGATIVE); GLUCOSE, URINE (UA) NEGATIVE (NEGATIVE); KETONES,URINE NEGATIVE (NEGATIVE); LEUKOCYTE ESTERASE ,URINE SMALL (NEGATIVE); NITRATE,URINE NEGATIVE (NEGATIVE); OCCULT BLOOD,URINE NEGATIVE (NEGATIVE); PH,URINE 5.5 (5.0-8.0); PROTEIN,URINE NEGATIVE (NEGATIVE)
[2018-06-09] MEDS ORDERED: KETOROLAC TROMETHAMINE 60 MG/2 ML VIAL IM ONE (17:30)
[2018-06-09] MEDS ORDERED: ZOLPIDEM TARTRATE 10 MG TABLET PO PRN (17:30)
[2018-06-09 17:35] LABS: AMPHET/METH SCREEN,URINE NEGATIVE (NEGATIVE); BARBITURATE SCREEN, URINE NEGATIVE (NEGATIVE); BENZODIAZEPINES SCREEN,URINE NEGATIVE (NEGATIVE); CANNABINOID SCREEN,URINE NEGATIVE (NEGATIVE); COCAINE SCREEN,URINE NEGATIVE (NEGATIVE); METHADONE SCREEN, URINE NEGATIVE (NEGATIVE); OPIATE SCREEN,URINE NEGATIVE (NEGATIVE)
[2018-06-09 17:36] LABS: SALICYLATE 2.7 mg/dL (2.8-20.0)
[2018-06-09 17:37] LABS: PHENCYCLIDINE SCREEN,URINE NEGATIVE (NEGATIVE)
[2018-06-09 17:40] LABS: ACETAMINOPHEN < 2 mcg/mL (10-30)
[2018-06-09] MEDS: HALOPERIDOL 5 MG TABLET PO PRN (17:51)
[2018-06-09] MEDS: LORazepam 2 MG TABLET PO PRN (17:51)
[2018-06-09 18:11] LABS: BACTERIA,URINE Rare /HPF (None Seen); RBC,URINE None Seen /HPF (0-2); SQUAMOUS EPITHELIAL CELL,UR Few /LPF (None Seen)
[2018-06-09] MEDS ORDERED: GuaiFENesin/D-METHORPHAN [SUGAR-FREE] 200-20MG/10 ML SYRUP UDCUP PO PRN (19:00)
[2018-06-09] MEDS ORDERED: PETROLATUM,WHITE 71 GM JELLY TP PRN (19:00)
[2018-06-09] MEDS ORDERED: LOPERAMIDE HCL 2 MG CAPSULE PO PRN (19:00)
[2018-06-09] MEDS ORDERED: NICOTINE 14 MG/24 HOUR PATCH TD PRN (19:00)
[2018-06-09] MEDS ORDERED: MAG HYDROX/AL HYDROX/SIMETH ES 30 ML SUSPENSION UDCUP PO PRN (19:00)
[2018-06-09] MEDS ORDERED: DOCUSATE SODIUM 100 MG CAPSULE PO PRN (19:00)
[2018-06-09] MEDS ORDERED: ALBUTEROL SULFATE HFA 90 MCG/PUFF 8 GM INHALER IH PRN (19:00)
[2018-06-09] MEDS ORDERED: MAGNESIUM HYDROXIDE SUSPENSION 30 ML UDCUP PO PRN (19:00)
[2018-06-09] MEDS ORDERED: CloNIDine HCL 0.1 MG TABLET PO PRN (19:00)
[2018-06-09] MEDS ORDERED: ONDANSETRON HCL 4 MG TABLET PO PRN (19:00)
[2018-06-09 19:15] VITALS: BP 115/81
[2018-06-09 21:00] VITALS: BP 122/69
[2018-06-10 06:19] VITALS: BP 118/72
[2018-06-10 08:00] VITALS: BP 136/87
[2018-06-10 08:29] LABS: BASOPHILS % (AUTO) 0.8 % (0.0-2.0); HEMATOCRIT 42.6 % (36-46); HEMOGLOBIN 14.1 g/dL (12.0-16.0); LYMPHOCYTES # (AUTO) 1.8 K/uL (1.0-4.8); LYMPHOCYTES % (AUTO) 36.4 % (22.0-44.0); MEAN CORPUSCULAR HEMOGLOBIN 29.5 pg (26.0-34.0); MEAN CORPUSCULAR HGB CONC 33.2 G/dL (31.0-37.0); MEAN CORPUSCULAR VOLUME 89 fL (80-100); MONOCYTES # (AUTO) 0.4 K/uL (0.1-1.0); MONOCYTES % (AUTO) 7.9 % (2.0-9.0); NEUTROPHILS # (AUTO) 2.5 K/uL (1.8-7.7); NEUTROPHILS % (AUTO) 50.9 % (40.0-70.0); PLATELET COUNT (AUTO) 269 K/uL (150-450); RED BLOOD CELL COUNT(AUTO) 4.79 MIL/uL (4.00-5.20); RED CELL DISTRIBUTION WIDTH 14.2 % (11.5-14.5)
[2018-06-10] MEDS: FOLIC ACID 1 MG TABLET PO SCH (08:39)
[2018-06-10] MEDS: THIAMINE HCL 100 MG TABLET PO SCH ×2 (08:39→16:59)
[2018-06-10] MEDS: MULTIVITAMINS WITH IRON TABLET PO SCH (08:39)
[2018-06-10] MEDS: OXYBUTYNIN CHLORIDE 5 MG TABLET PO SCH ×2 (08:39→16:59)
[2018-06-10] MEDS: ATENOLOL 25 MG TABLET PO SCH (08:40)
[2018-06-10] MEDS: HydrALAZINE HCL 10 MG TABLET PO SCH ×2 (08:40→20:30)
[2018-06-10 09:06] LABS: HEMOGLOBIN A1C 5.6 % (4.5-6.2)
[2018-06-10 09:24] LABS: ALANINE AMINOTRANSFERASE 54 U/L (12-78); ALBUMIN 3.2 g/dL (3.4-5.0); ALKALINE PHOSPHATASE 48 U/L (46-116); ANION GAP 5 mmol/L (8-16); ASPARTATE AMINOTRANSFERASE 50 U/L (15-37); BILIRUBIN,TOTAL 0.4 mg/dL (0.1-1.0); CALCIUM, TOTAL 8.4 mg/dL (8.8-10.5); CARBON DIOXIDE 31 mmol/L (22-29); CHLORIDE 107 mmol/L (98-107); CHOLESTEROL 153 mg/dL (131-200); CREATININE 0.72 mg/dL (0.60-1.30); FREE T4 (FREE THYROXINE) 0.82 ng/dL (0.76-1.46); GLOMERULAR FILTR. RATE CALC > 60 mL/min (>60); GLUCOSE,RANDOM 81 mg/dL (70-110); HDL CHOLESTEROL 76 mg/dL (40-60); LDL CHOL (CALC.) 66 mg/dL (0-130); POTASSIUM 4.3 mmol/L (3.5-5.1); SODIUM SERUM 143 mmol/L (136-145); THYROID STIMULATING HORMONE 0.75 uIU/mL (0.36-3.74); TOTAL PROTEIN, SERUM 6.8 g/dL (6.4-8.2); TRIGLYCERIDES 56 mg/dL (15-150); UREA NITROGEN, BLOOD 25 mg/dL (7-18)
[2018-06-10 12:20] VITALS: BP 128/79
[2018-06-10] MEDS: BuPROPion HCL XL 150 MG ER TABLET PO SCH (12:22)
[2018-06-10] MEDS: IBUPROFEN 400 MG TABLET PO PRN ×2 (12:25→20:30)
[2018-06-10 16:30] VITALS: BP 145/76
[2018-06-10 20:30] VITALS: BP 140/85
[2018-06-10 23:40] VITALS: BP 130/80
[2018-06-10] MEDS: LORazepam 2 MG TABLET PO PRN (23:41)
[2018-06-10] MEDS: ACETAMINOPHEN 325 MG TABLET PO PRN (23:41)
[2018-06-11 08:36] VITALS: BP 140/84
[2018-06-11] MEDS: MULTIVITAMINS WITH IRON TABLET PO SCH (09:14)
[2018-06-11] MEDS: OXYBUTYNIN CHLORIDE 5 MG TABLET PO SCH ×2 (09:14→17:14)
[2018-06-11] MEDS: FOLIC ACID 1 MG TABLET PO SCH (09:14)
[2018-06-11] MEDS: THIAMINE HCL 100 MG TABLET PO SCH ×2 (09:14→17:14)
[2018-06-11] MEDS: HydrALAZINE HCL 10 MG TABLET PO SCH ×2 (09:14→20:46)
[2018-06-11] MEDS: BuPROPion HCL XL 150 MG ER TABLET PO SCH (09:14)
[2018-06-11] MEDS: ATENOLOL 25 MG TABLET PO SCH (09:15)
[2018-06-11] MEDS: GABAPENTIN 100 MG CAPSULE PO SCH ×2 (13:07→17:14)
[2018-06-11 16:15] VITALS: BP 107/60
[2018-06-11 20:40] VITALS: BP 129/77
[2018-06-11 20:45] VITALS: BP 129/77
[2018-06-12 00:45] VITALS: BP 132/73
[2018-06-12] MEDS: IBUPROFEN 400 MG TABLET PO PRN (00:58)
[2018-06-12] MEDS: HALOPERIDOL 5 MG TABLET PO PRN (00:59)
[2018-06-12 06:00] VITALS: BP 128/74
[2018-06-12] MEDS: ACETAMINOPHEN 325 MG TABLET PO PRN (06:19)
[2018-06-12 09:00] VITALS: BP 109/70
[2018-06-12] MEDS: MULTIVITAMINS WITH IRON TABLET PO SCH (09:31)
[2018-06-12] MEDS: GABAPENTIN 100 MG CAPSULE PO SCH (09:31)
[2018-06-12] MEDS: FOLIC ACID 1 MG TABLET PO SCH (09:31)
[2018-06-12] MEDS: OXYBUTYNIN CHLORIDE 5 MG TABLET PO SCH (09:32)
[2018-06-12] MEDS: THIAMINE HCL 100 MG TABLET PO SCH (09:32)
[2018-06-12] MEDS: BuPROPion HCL XL 150 MG ER TABLET PO SCH (09:32)
[2018-06-12] MEDS: HydrALAZINE HCL 10 MG TABLET PO SCH (09:32)
[2018-06-12] MEDS: ATENOLOL 25 MG TABLET PO SCH (10:36)
== END 2018-06-12 11:55 | disposition home or self-care (01) | DRG 751 ==
LOC: EMS 14:13 → B2S 19:00
PROVIDERS: ADMIT Psychiatry & Neurology Child & Adolescent Psychiatry; ATTEND Psychiatry & Neurology Child & Adolescent Psychiatry
DX: F33.3 Major depressive disorder, recurrent, severe with psychotic symptoms (principal); R45.851 Suicidal ideations; K73.9 Chronic hepatitis, unspecified; E78.00 Pure hypercholesterolemia, unspecified; E78.5 Hyperlipidemia, unspecified; F10.10 Alcohol abuse, uncomplicated; F17.210 Nicotine dependence, cigarettes, uncomplicated; I10 Essential (primary) hypertension; J44.9 Chronic obstructive pulmonary disease, unspecified; G89.29 Other chronic pain; K21.9 Gastro-esophageal reflux disease without esophagitis; R32 Unspecified urinary incontinence; Z59.0 Homelessness; Z71.41 Alcohol abuse counseling and surveillance of alcoholic; Z86.73 Personal history of transient ischemic attack (TIA), and cerebral infarction without residual deficits; Z91.5 Personal history of self-harm; Z71.51 Drug abuse counseling and surveillance of drug abuser
CPT/HCPCS: 83036; 84436; 84439; 84443; 96372; 99406; G0480; G0481; J1885

== ENCOUNTER 2019-05-08 16:25 | Inpatient (IN) | payer MEDICAID, OTHER ==
[~2019-05-08] VITALS: Ht 160 cm; Wt 41.4 kg
[~2019-05-08 16:25] MED LIST changes: -FOLI1 PO; -MULT-1239 PO; -THIA100T67 PO
[2019-05-08 16:42] LABS: BASOPHILS % (AUTO) 1.4 % (0.0-2.0); EOSINOPHILS % (AUTO) 0.1 % (1.0-6.0); HEMATOCRIT 41.6 % (36-46); HEMOGLOBIN 13.5 g/dL (12.0-16.0); LYMPHOCYTES # (AUTO) 1.4 K/uL (1.0-4.8); LYMPHOCYTES % (AUTO) 33.1 % (22.0-44.0); MEAN CORPUSCULAR HEMOGLOBIN 30.5 pg (26.0-34.0); MEAN CORPUSCULAR HGB CONC 32.5 G/dL (31.0-37.0); MEAN CORPUSCULAR VOLUME 94 fL (80-100); MONOCYTES # (AUTO) 0.3 K/uL (0.1-1.0); MONOCYTES % (AUTO) 7.3 % (2.0-9.0); NEUTROPHILS # (AUTO) 2.5 K/uL (1.8-7.7); NEUTROPHILS % (AUTO) 58.1 % (40.0-70.0); PLATELET COUNT (AUTO) 260 K/uL (150-450); RED BLOOD CELL COUNT(AUTO) 4.43 MIL/uL (4.00-5.20); RED CELL DISTRIBUTION WIDTH 14.7 % (11.5-14.5)
[2019-05-08 16:52] LABS: ANION GAP 12 mmol/L (8-16); CALCIUM, TOTAL 8.9 mg/dL (8.8-10.5); CARBON DIOXIDE 25 mmol/L (22-29); CHLORIDE 99 mmol/L (98-107); CREATININE 0.59 mg/dL (0.60-1.30); GLOMERULAR FILTR. RATE CALC > 60 mL/min (>60); GLUCOSE,RANDOM 76 mg/dL (70-110); SODIUM SERUM 136 mmol/L (136-145); UREA NITROGEN, BLOOD 13 mg/dL (7-18)
[2019-05-08 16:57] LABS: ALANINE AMINOTRANSFERASE 37 U/L (12-78); ALBUMIN 3.8 g/dL (3.4-5.0); ALKALINE PHOSPHATASE 55 U/L (46-116); ASPARTATE AMINOTRANSFERASE 110 U/L (15-37); BILIRUBIN,TOTAL 0.8 mg/dL (0.1-1.0); TOTAL PROTEIN, SERUM 7.5 g/dL (6.4-8.2)
[2019-05-08] MEDS ORDERED: IOVERSOL 320 MG/ML 100 ML VIAL ONE (19:13)
[2019-05-08] MEDS ORDERED: SODIUM CHLORIDE 0.9% 100 ML ONE (19:14)
[2019-05-08 19:45] LABS: APPEARANCE,URINE CLEAR (CLEAR); BILIRUBIN,URINE NEGATIVE (NEGATIVE); GLUCOSE, URINE (UA) NEGATIVE (NEGATIVE); KETONES,URINE 15 mg/dL (NEGATIVE); LEUKOCYTE ESTERASE ,URINE NEGATIVE (NEGATIVE); NITRATE,URINE NEGATIVE (NEGATIVE); OCCULT BLOOD,URINE NEGATIVE (NEGATIVE); PROTEIN,URINE NEGATIVE (NEGATIVE)
[2019-05-08 20:17] LABS: BACTERIA,URINE Many /HPF (None Seen); RBC,URINE 0-2 /HPF (0-2)
[2019-05-08 20:18] LABS: SQUAMOUS EPITHELIAL CELL,UR Few /LPF (None Seen); WBC,URINE 0-2 /HPF (0-5)
[2019-05-08] MEDS ORDERED: ACETAMINOPHEN 325 MG TABLET PO ONE ×2 (22:15)
[2019-05-08 23:22] VITALS: BP 155/89
[2019-05-09] MEDS ORDERED: INFLUENZA VIRUS VACCINE QVS 2019-20 (3YR+)/PF 60 MCG/0.5 ML SYRINGE IM ONE (00:30)
[2019-05-09] MEDS ORDERED: PNEUMOCOCCAL VACCINE POLYVALENT 0.5 ML VIAL [PPSV23] IM ONE (00:30)
[2019-05-09 04:20] VITALS: BP 124/76
[2019-05-09] MEDS ORDERED: ONDANSETRON HCL 4 MG/2 ML VIAL IVP PRN ×2 (06:00→12:15)
[2019-05-09] MEDS ORDERED: ACETAMINOPHEN 325 MG TABLET PO PRN ×2 (06:00→12:15)
[2019-05-09] MEDS: GABAPENTIN 400 MG CAPSULE PO SCH ×2 (06:16→20:25)
[2019-05-09 07:09] VITALS: BP 123/79
[2019-05-09] MEDS ORDERED: GABA-533 PO (11:14)
[2019-05-09] MEDS ORDERED: TRAZ-220 PO (11:14)
[2019-05-09] MEDS ORDERED: CITA-106 PO (11:14)
[2019-05-09] MEDS ORDERED: RANI150T7 PO (11:14)
[2019-05-09] MEDS ORDERED: SIMV10TA97 PO (11:14)
[2019-05-09] MEDS ORDERED: ATEN50TA PO (11:14)
[2019-05-09] MEDS ORDERED: OXYB15TA18 PO (11:14)
[2019-05-09] MEDS ORDERED: COMBISP IH (11:14)
[2019-05-09] MEDS ORDERED: MORPHINE SULFATE 2 MG/ML SYRINGE IVP PRN (12:15)
[2019-05-09] MEDS ORDERED: IPRATROPIUM BROMIDE 0.5 MG/2.5 ML NEB SOLUTION NEB PRN (12:15)
[2019-05-09] MEDS ORDERED: BISACODYL 10 MG RECTAL RECTAL SUPPOSITORY PR PRN (12:15)
[2019-05-09] MEDS ORDERED: HYDROCODONE/ACETAMINOPHEN 5-325 MG TABLET PO PRN (12:15)
[2019-05-09] MEDS ORDERED: MAGNESIUM HYDROXIDE SUSPENSION 30 ML UDCUP PO PRN (12:15)
[2019-05-09] MEDS ORDERED: ALBUTEROL SULFATE 2.5 MG/0.5 ML NEB SOLUTION NEB PRN (12:15)
[2019-05-09] MEDS ORDERED: ZOLPIDEM TARTRATE 5 MG TABLET PO PRN (12:15)
[2019-05-09] MEDS ORDERED: OXYB5XL PO (12:22)
[2019-05-09 12:49] LABS: BASOPHILS % (AUTO) 0.3 % (0.0-2.0); EOSINOPHILS % (AUTO) 0.2 % (1.0-6.0); HEMATOCRIT 47.2 % (36-46); HEMOGLOBIN 15.4 g/dL (12.0-16.0); LYMPHOCYTES # (AUTO) 1.4 K/uL (1.0-4.8); LYMPHOCYTES % (AUTO) 23.5 % (22.0-44.0); MEAN CORPUSCULAR HEMOGLOBIN 30.5 pg (26.0-34.0); MEAN CORPUSCULAR HGB CONC 32.6 G/dL (31.0-37.0); MEAN CORPUSCULAR VOLUME 94 fL (80-100); MONOCYTES # (AUTO) 0.5 K/uL (0.1-1.0); MONOCYTES % (AUTO) 7.7 % (2.0-9.0); NEUTROPHILS # (AUTO) 4.1 K/uL (1.8-7.7); NEUTROPHILS % (AUTO) 68.3 % (40.0-70.0); PLATELET COUNT (AUTO) 256 K/uL (150-450); RED BLOOD CELL COUNT(AUTO) 5.03 MIL/uL (4.00-5.20); RED CELL DISTRIBUTION WIDTH 14.8 % (11.5-14.5)
[2019-05-09 13:02] LABS: ANION GAP 10 mmol/L (8-16); CALCIUM, TOTAL 9.4 mg/dL (8.8-10.5); CARBON DIOXIDE 26 mmol/L (22-29); CHLORIDE 94 mmol/L (98-107); CREATININE 1.05 mg/dL (0.60-1.30); GLOMERULAR FILTR. RATE CALC > 60 mL/min (>60); GLUCOSE,RANDOM 278 mg/dL (70-110); POTASSIUM 3.9 mmol/L (3.5-5.1); SODIUM SERUM 130 mmol/L (136-145); UREA NITROGEN, BLOOD 11 mg/dL (7-18)
[2019-05-09 13:16] LABS: ALANINE AMINOTRANSFERASE 42 U/L (12-78); ALBUMIN 3.8 g/dL (3.4-5.0); ALKALINE PHOSPHATASE 58 U/L (46-116); ASPARTATE AMINOTRANSFERASE 93 U/L (15-37); THYROID STIMULATING HORMONE 1.12 uIU/mL (0.36-3.74); TOTAL PROTEIN, SERUM 7.7 g/dL (6.4-8.2)
[2019-05-09] MEDS ORDERED: BARIUM SULFATE 0.1% SUSPENSION 450 ML BOTTLE ONE (14:40)
[2019-05-09] MEDS ORDERED: IOVERSOL 320 MG/ML 100 ML VIAL ONE (15:23)
[2019-05-09] MEDS ORDERED: SODIUM CHLORIDE 0.9% 100 ML ONE (15:23)
[2019-05-09] MEDS: HEPARIN SODIUM,PORCINE 5,000 UNITS/ML VIAL SQ SCH (16:17)
[2019-05-09 17:01] VITALS: BP 106/62
[2019-05-09 19:48] VITALS: BP 154/83
[2019-05-09] MEDS: DOCUSATE SODIUM 100 MG CAPSULE PO SCH ×2 (20:25→21:00)
[2019-05-10 00:09] VITALS: BP 113/76
[2019-05-10] MEDS: HEPARIN SODIUM,PORCINE 5,000 UNITS/ML VIAL SQ SCH ×2 (00:52→08:09)
[2019-05-10 04:40] VITALS: BP 130/89
[2019-05-10 07:00] LABS: BASOPHILS % (AUTO) 0.3 % (0.0-2.0); EOSINOPHILS % (AUTO) 0.8 % (1.0-6.0); HEMOGLOBIN 15.5 g/dL (12.0-16.0); MEAN CORPUSCULAR HEMOGLOBIN 31.3 pg (26.0-34.0); MEAN CORPUSCULAR VOLUME 95 fL (80-100); MONOCYTES # (AUTO) 0.6 K/uL (0.1-1.0); NEUTROPHILS % (AUTO) 53.9 % (40.0-70.0); PLATELET COUNT (AUTO) 253 K/uL (150-450); RED BLOOD CELL COUNT(AUTO) 4.97 MIL/uL (4.00-5.20); RED CELL DISTRIBUTION WIDTH 15.1 % (11.5-14.5)
[2019-05-10 07:10] LABS: ALANINE AMINOTRANSFERASE 40 U/L (12-78); ALBUMIN 3.6 g/dL (3.4-5.0); ALKALINE PHOSPHATASE 54 U/L (46-116); ANION GAP 6 mmol/L (8-16); ASPARTATE AMINOTRANSFERASE 63 U/L (15-37); BILIRUBIN,TOTAL 0.8 mg/dL (0.1-1.0); CALCIUM, TOTAL 9.8 mg/dL (8.8-10.5); CARBON DIOXIDE 30 mmol/L (22-29); CHLORIDE 96 mmol/L (98-107); CREATININE 0.67 mg/dL (0.60-1.30); GLOMERULAR FILTR. RATE CALC > 60 mL/min (>60); GLUCOSE,RANDOM 105 mg/dL (70-110); PHOSPHORUS 2.8 mg/dL (2.5-4.9); SODIUM SERUM 132 mmol/L (136-145); TOTAL PROTEIN, SERUM 7.5 g/dL (6.4-8.2); UREA NITROGEN, BLOOD 9 mg/dL (7-18)
[2019-05-10] MEDS: DOCUSATE SODIUM 100 MG CAPSULE PO SCH (08:11)
[2019-05-10 09:03] VITALS: BP 128/78
[2019-05-10 11:31] VITALS: BP 122/68
== END 2019-05-10 13:16 | disposition home or self-care (01) | DRG 203 ==
LOC: EMS 16:26 → 5S 22:37
PROVIDERS: ADMIT Hospitalist; ATTEND Hospitalist
DX: R07.89 Other chest pain (principal); E44.0 Moderate protein-calorie malnutrition; E78.00 Pure hypercholesterolemia, unspecified; E78.5 Hyperlipidemia, unspecified; F32.9 Major depressive disorder, single episode, unspecified; F10.20 Alcohol dependence, uncomplicated; R30.9 Painful micturition, unspecified; I10 Essential (primary) hypertension; J44.9 Chronic obstructive pulmonary disease, unspecified; K21.9 Gastro-esophageal reflux disease without esophagitis; F17.210 Nicotine dependence, cigarettes, uncomplicated; N32.81 Overactive bladder; Z82.49 Family history of ischemic heart disease and other diseases of the circulatory system; Z86.73 Personal history of transient ischemic attack (TIA), and cerebral infarction without residual deficits; Z68.1 Body mass index [BMI] 19.9 or less, adult; Z79.899 Other long term (current) drug therapy
CPT/HCPCS: 71275; 74177; 83735; 84100; 84443; 85379; 87086; 93005; 93306; 96374; J1644; J2270; J2405; J7050

== ENCOUNTER 2019-05-17 12:37 | Emergency (ER) | payer OTHER ==
[~2019-05-17] VITALS: Ht 160 cm; Wt 51.0 kg
[~2019-05-17 12:37] MED LIST changes: -ATEN25TA PO; +ATEN50TA PO; -BUPR-93 PO; +CITA-106 PO; +COMBISP IH; -GABA-529 PO; +GABA-533 PO; -HYDR10TA31 PO; -OXYB5 PO; +SIMV10TA6 PO; +TRAZ-220 PO
[2019-05-17] MEDS ORDERED: LIDOCAINE 1%/EPI 1:200,000/PF 10 ML VIAL INJ ONE (14:00)
[2019-05-17 15:04] VITALS: BP 121/77
== END 2019-05-17 15:04 | disposition home or self-care (01) ==
LOC: EMS 12:38
DX: L02.413 Cutaneous abscess of right upper limb (principal); L03.115 Cellulitis of right lower limb; F31.9 Bipolar disorder, unspecified; J44.9 Chronic obstructive pulmonary disease, unspecified; K21.9 Gastro-esophageal reflux disease without esophagitis; E78.00 Pure hypercholesterolemia, unspecified; I10 Essential (primary) hypertension; F17.210 Nicotine dependence, cigarettes, uncomplicated; F19.90 Other psychoactive substance use, unspecified, uncomplicated; Z86.73 Personal history of transient ischemic attack (TIA), and cerebral infarction without residual deficits
CPT/HCPCS: 10060; 99283; J3490

== ENCOUNTER 2022-10-09 05:23 | Emergency (ER) | payer OTHER ==
[~2022-10-09] VITALS: Ht 160 cm; Wt 56.8 kg
[~2022-10-09 05:23] MED LIST changes: +ACET-2895 PO; +AMLO-257 PO; +ASPI-1198 PO; +ATEN-72 PO; -ATEN50TA PO; +BACL10TA PO; +CHOL25TA4 PO; -CITA-106 PO; +CITA-144 PO; -COMBISP IH; +DIPH-1243 PO; +DOCU-385 PO; +DONE-52 PO; +FAMO20 PO; +GABA-1201 PO; -GABA-533 PO; +IPRA4AER IH; +MULT-1203 PO; +NALT50TA6 PO; +OS500 PO; +OXYB-34 PO; -SIMV10TA6 PO; +SIMV10TA97 PO; +THIA100T80 PO; -TRAZ-220 PO; +TRAZ-257 PO
[2022-10-09] MEDS ORDERED: KETOROLAC TROMETHAMINE 60 MG/2 ML VIAL IM ONE (06:30)
[2022-10-09] MEDS ORDERED: CYCLOBENZAPRINE HCL 10 MG TABLET PO ONE (06:30)
[2022-10-09] MEDS ORDERED: IBUP-1492 PO ×2 (06:36→07:14)
[2022-10-09] MEDS ORDERED: CYCL-448 PO ×2 (06:36→07:14)
[2022-10-09 06:53] VITALS: BP 129/77
== END 2022-10-09 07:00 | disposition home or self-care (01) ==
LOC: EMS 05:24
DX: G89.29 Other chronic pain (principal); M54.41 Lumbago with sciatica, right side; F10.20 Alcohol dependence, uncomplicated; F31.9 Bipolar disorder, unspecified; J44.9 Chronic obstructive pulmonary disease, unspecified; E78.00 Pure hypercholesterolemia, unspecified; I10 Essential (primary) hypertension; F17.210 Nicotine dependence, cigarettes, uncomplicated; F15.90 Other stimulant use, unspecified, uncomplicated
CPT/HCPCS: 99283; 96372; J1885

== ENCOUNTER 2022-10-17 15:44 | Emergency (ER) | payer OTHER ==
[~2022-10-17] VITALS: Ht 160 cm; Wt 45.5 kg
[~2022-10-17 15:44] MED LIST changes: +CYCL-448 PO; +IBUP-1492 PO
[2022-10-17 15:52] VITALS: BP 110/82
[2022-10-17] MEDS ORDERED: KETOROLAC TROMETHAMINE 30 MG/ML VIAL IM ONE (18:15)
[2022-10-17 18:34] LABS: APPEARANCE,URINE CLEAR (CLEAR); BILIRUBIN,URINE NEGATIVE (NEGATIVE); GLUCOSE, URINE (UA) NEGATIVE (NEGATIVE); LEUKOCYTE ESTERASE ,URINE MODERATE (NEGATIVE); NITRATE,URINE POSITIVE (NEGATIVE); OCCULT BLOOD,URINE NEGATIVE (NEGATIVE); PROTEIN,URINE TRACE mg/dL (NEGATIVE); SPECIFIC GRAVITIY, URINE 1.018 (1.003-1.030); UROBILINOGEN,URINE <=1.0 mg/dL (<=1.0)
[2022-10-17 18:51] LABS: BACTERIA,URINE Moderate /HPF (None Seen); RBC,URINE None Seen /HPF (0-2); SQUAMOUS EPITHELIAL CELL,UR Moderate /LPF (None Seen)
[2022-10-17] MEDS ORDERED: CEPHALEXIN MONOHYDRATE 500 MG CAPSULE PO ONE (19:00)
[2022-10-17] MEDS ORDERED: CEPH-558 PO (19:00)
[2022-10-17] MEDS ORDERED: IBUP-1506 PO (19:00)
== END 2022-10-17 19:59 | disposition home or self-care (01) ==
LOC: EMS 16:08
DX: M54.31 Sciatica, right side (principal); N39.0 Urinary tract infection, site not specified; F10.20 Alcohol dependence, uncomplicated; F31.9 Bipolar disorder, unspecified; J44.9 Chronic obstructive pulmonary disease, unspecified; E78.00 Pure hypercholesterolemia, unspecified; I10 Essential (primary) hypertension; F17.210 Nicotine dependence, cigarettes, uncomplicated; F15.90 Other stimulant use, unspecified, uncomplicated
CPT/HCPCS: 99283; 81001; 87086; 87186; 96372; J1885

== ENCOUNTER 2022-11-29 00:32 | Emergency (ER) | payer OTHER ==
[~2022-11-29] VITALS: Ht 160 cm; Wt 45.0 kg
[~2022-11-29 00:32] MED LIST changes: +CEPH-558 PO; +IBUP-1506 PO
[2022-11-29 01:23] LABS: BASOPHILS % (AUTO) 1.4 % (0.0-2.0); EOSINOPHILS % (AUTO) 0.7 % (1.0-6.0); HEMATOCRIT 36.4 % (36-46); HEMOGLOBIN 11.8 g/dL (12.0-16.0); LYMPHOCYTES # (AUTO) 1.8 K/uL (1.0-4.8); MEAN CORPUSCULAR HEMOGLOBIN 32.2 pg (26.0-34.0); MEAN CORPUSCULAR HGB CONC 32.3 G/dL (31.0-37.0); MEAN CORPUSCULAR VOLUME 100 fL (80-100); MONOCYTES # (AUTO) 0.2 K/uL (0.1-1.0); MONOCYTES % (AUTO) 7.2 % (2.0-9.0); NEUTROPHILS # (AUTO) 1.1 K/uL (1.8-7.7); NEUTROPHILS % (AUTO) 34.7 % (40.0-70.0); PLATELET COUNT (AUTO) 162 K/uL (150-450); RED BLOOD CELL COUNT(AUTO) 3.65 MIL/uL (4.00-5.20); RED CELL DISTRIBUTION WIDTH 15.7 % (11.5-14.5)
[2022-11-29 01:29] LABS: ANION GAP 18 mmol/L (8-16); CALCIUM, TOTAL 8.2 mg/dL (8.8-10.5); CARBON DIOXIDE 26 mmol/L (22-29); CHLORIDE 104 mmol/L (98-107); CREATININE 0.42 mg/dL (0.60-1.30); GLOMERULAR FILTR. RATE CALC > 60 mL/min (>60); GLUCOSE,RANDOM 55 mg/dL (70-110); POTASSIUM 3.3 mmol/L (3.5-5.1); SODIUM SERUM 148 mmol/L (136-145); UREA NITROGEN, BLOOD 3 mg/dL (7-18)
[2022-11-29 01:35] LABS: ALANINE AMINOTRANSFERASE 78 U/L (12-78); ALBUMIN 2.7 g/dL (3.4-5.0); ALKALINE PHOSPHATASE 164 U/L (46-116); ASPARTATE AMINOTRANSFERASE 374 U/L (15-37); BILIRUBIN,TOTAL 1.1 mg/dL (0.1-1.0); TOTAL PROTEIN, SERUM 6.1 g/dL (6.4-8.2)
[2022-11-29] MEDS ORDERED: ACETAMINOPHEN 325 MG TABLET PO ONE (04:00)
[2022-11-29 12:10] VITALS: BP 126/70
== END 2022-11-29 13:00 | disposition home or self-care (01) ==
LOC: EMS 00:33
DX: F10.129 Alcohol abuse with intoxication, unspecified (principal); M54.9 Dorsalgia, unspecified; E78.00 Pure hypercholesterolemia, unspecified; I10 Essential (primary) hypertension; F41.9 Anxiety disorder, unspecified; F31.9 Bipolar disorder, unspecified; J44.9 Chronic obstructive pulmonary disease, unspecified; F20.9 Schizophrenia, unspecified; I63.9 Cerebral infarction, unspecified; F17.210 Nicotine dependence, cigarettes, uncomplicated; F15.90 Other stimulant use, unspecified, uncomplicated
CPT/HCPCS: 99285; 70450; 80053; 84484; 85025; 36415; 71101; 72040; 72070; 72100; G0480